=== PATIENT | male | born 1990 | race Caucasian/White ===

== ENCOUNTER 2017-03-05 02:14 | Inpatient (IN) | payer SELFPAY ==
--- NOTE | ~2017-03-05 | OR ---
PATIENT'S NAME: MAX HAMMOND [facility] AGE: 26 Y [address] ROOM: [address] [place] [address] LOCATION: [facility] ADMIT DATE: 03/05/2017 OR/Procedure Report DISCHARGE DATE: 03/06/2017 FAMILY PHYSICIAN: Physician, Unknown ATTENDING PHYSICIAN: Alberto Santamaria SURGEON: Juan Antonio Redd DO JOB SITE SUPERVISOR: DATE OF PROCEDURE: 03/05/2017 PREOPERATIVE DIAGNOSES: Cardiogenic shock with multisystem failure. SECONDARY DIAGNOSES: Acute pancreatitis, coagulopathy. PROCEDURE: 1. Insertion of right femoral arterial line. 2. Left subclavian central venous catheter. 3. Initiation of ECMO via the left femoral artery and left femoral vein. 4. Control of coagulopathy. HISTORY: Mr. Hammond is a 26-year-old, white male, who I was called to see in the emergency department where he had been transferred from an outlying facility for loss of consciousness, lack of responsiveness, and arrest on arrival to our institution. He had been initiated on pressors and was currently maxed on 3 pressors upon my arrival. I was called by Dr. Mcdonough as they had called him for possible balloon pump insertion. He felt the patient may be an ECMO candidate. The patient is a 26-year-old male who [facility] with loss of consciousness, questionable seizure activity, unwitnessed, and there was no known period of down time. Upon arrival here, he did have an arrest which did require intubations and compressions. Upon my arrival, as not noted above, he was on 3 pressors and remained hypotensive and tachycardic with pressures in the 60s and 70s and tachycardia in the 140s. Echocardiogram showed depressed ejection fraction, approximately 15% to 20% with a very enlarged right ventricle. CAT scan of the chest and abdomen did not show any evidence of pulmonary embolism. Given his overall status, I placed a right femoral arterial line for monitoring during transfer. This was done after sterilely prepping and draping the right groin and the femoral artery was accessed without difficulty and a guidewire placed without resistance. Introducer needle was removed. The catheter was placed over the guidewire and the guidewire removed. Good arterial flow was noted. The catheter was connected to the arterial monitoring system and appropriate arterial waveform was appreciated. This waveform did give us a reading of 98 at this point in time, systolic. It was secured in position with a 2-0 silk and a sterile dressing was applied. The patient was placed into deep Trendelenburg position PATIENT'S NAME: MAX HAMMOND [facility] AGE: 26 Y [address] ROOM: [address] [address] LOCATION: [facility] ADMIT DATE: 03/05/2017 OR/Procedure Report DISCHARGE DATE: 03/06/2017 FAMILY PHYSICIAN: Physician, Unknown ATTENDING PHYSICIAN: Alberto Santamaria and the infraclavicular space on the left was sterilely prepped and draped. 1% lidocaine was used to infiltrate the area. The left subclavian vein was accessed without difficulty. Guidewire was placed without difficulty. A stab incision was made at the base of the needle and the needle was withdrawn. Soft-tissue dilators were placed over the guidewire and withdrawn and then the triple-lumen catheter was placed over the guidewire and the guidewire was withdrawn. Each lumen aspirated easily with dark venous blood. It was secured and flushed with normal saline. It was secured with a 2-0 silk and a sterile dressing applied. At this point in time, I had a long conversation with the family, and they agreed for initiation of ECMO. He was transferred with myself and Dr. Asencio in attendance from the emergency department to the operative suite. General anesthetic was initiated. He was sterilely prepped and draped in usual fashion. An oblique incision was carried out over the left groin and dissection was carried out with electrocautery to the vessels. The vessels were circumferentially dissected, vessel loops applied around the artery. The patient was coagulopathic by labs and appropriate products were being ordered. Proximal and distal femoral clamps were placed on the artery. The artery was opened and 10 mm graft was secured to the femoral artery with [place] suture. The graft was then de-aired in the artery and clamped. The graft site was hemostatic. However, secondary to the coagulopathy, all needle holes were somewhat oozing and 7-0 Prolene's were used to approximate some of the needle holes. We then placed a 6-0 purse string suture in the left femoral vein and advanced the 25-Sami catheter under echocardiographic guidance into the atrium. We then placed the patient on to ECMO. We were flowing at 5 L with good pressures. His coagulopathy continued to be a tissue and this was appropriately managed. Flight crew was on standby. We prepared the patient for transfer in the operative suite, by securing the cannulas and applying sterile dressings. We then accompanied the patient myself and booking police officer and flight crew staff to the [facility], loaded the patient safely on to the helicopter and he was flown to [facility]. DO RIKKI HERNANDEZ/mayra /[id number] d: 03/14/171802 t: 03/14/172115, OPERATIVE SUMMARY
--- NOTE | ~2017-03-05 | HP ---
PATIENT'S NAME: MAX HAMMOND [facility] AGE: 26 Y [address] ROOM: [place] [address] LOCATION: [facility] ADMIT DATE: 03/05/2017 History & Physical DISCHARGE DATE: FAMILY PHYSICIAN: Physician, Unknown ATTENDING PHYSICIAN: Wesley Sims DATE OF SERVICE: CHIEF COMPLAINT: Not feeling well in general. HISTORY OF PRESENT ILLNESS: This is a 26-year-old male, with a history of alcohol use, not sure how much and how often, and the story is directly obtained from the patient's parents given that the patient is currently intubated. The story from the patient's parents is that the patient usually lives in [place] and he came here to visit his parents today. He came up here driving with his brother and his brother's girlfriend. After that, when patient arrived home, his parents noticed that the patient did not look well in general where he was complaining of not feeling well and he also vomited a few times and looks pale and does not look well in general. As the night went by, the patient ate very little dinner and he went to bed early. In the middle of the night around 1:00 a.m., the mother found the patient sitting on the ground and noted to be confused and still sweaty and also not feeling well, therefore she helped the patient to sit on the bed and then called the ambulance. The ambulance then drove the patient over here. In the emergency room, I was not present. Therefore all the events was told to me by Dr. Sims. The story is that in the emergency room, when the patient arrived here, the patient became bradycardic and went into PEA. Code blue was activated in the emergency room and the patient was down for roughly 1 minute where the patient received one round of epinephrine 1 mg and also 1 dose of atropine and the patient's heart rate was able to scrap picker. However, as the heart rate picked up, there was no blood pressure detectable. The patient was subsequently started on multiple pressors to try to regain the blood pressure. No further history can be obtained from the patient given that the patient is intubated. The patient's parents also do not know anything else. The patient's parents did tell me that the patient is a very conservative person where he keeps most of things to himself and he did not tell. The patient has a history of depression, PTSD, and also hypertension, where he takes some medicine but they are not sure which ones, and the patient is also a chronic alcohol user but the parents do not know how frequent and how many. REVIEW OF SYSTEMS: Cannot be obtained from the patient given that the patient is currently intubated. PATIENT'S NAME: MAX HAMMOND [facility] AGE: 26 Y [address] ROOM: [place], [place] [address] LOCATION: [facility] ADMIT DATE: 03/05/2017 History & Physical DISCHARGE DATE: FAMILY PHYSICIAN: Physician, Unknown ATTENDING PHYSICIAN: Wesley Sims ALLERGIES: CANNOT BE OBTAINED FROM THE PATIENT GIVEN THAT THE PATIENT IS CURRENTLY INTUBATED. FROM THE PATIENT'S PARENTS, NONE. HOME MEDICATIONS: Parents of the patient do not know. SOCIAL HISTORY: The patient is a chronic alcohol drinker according to the patient's parents but they are not sure of the frequency and quantity. The patient's parents deny any illegal drug or cigarette smoking. 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 FAMILY HISTORY: Mother has hypertension and hypothyroidism. Father has hypertension and epilepsy. He has 2 brothers, and they are all healthy. PHYSICAL EXAMINATION: VITAL SIGNS: At the time of my evaluation, currently, blood pressure is in the 72/51, heart rate is in the 135, respirations 14, on ventilator, AC mode, FiO2 100%, tidal volume 400, and rate of 14, saturating at 91%. Temperature 97.5. GENERAL APPEARANCE: The patient is not responsive, given that the patient is intubated. The patient feels cold to touch. HEENT: Pupils equally round and reactive to light. Pupil size is about 4 mm bilaterally. Anicteric sclerae. Nasal turbinates are normal bilaterally. There is some vomiting content around the mouth but they are dry. NECK: No JVD. CARDIOVASCULAR: Tachycardic. No murmur. No rubs. No gallops. Regular rhythm. RESPIRATORY: Clear to auscultation. No rales. No rhonchi. No wheezing. No crackles. ABDOMEN: Soft, cannot assess tenderness given the patient is currently unresponsive. No mass. Soft. Nondistended. Bowel sounds are present. EXTREMITIES: No edema in upper or lower extremities. The patient is cold to touch in the extremities. NEUROLOGICAL: Cannot be assessed given that the patient is currently unresponsive and intubated. SKIN: Cold to touch and a bit cyanotic in the toes and also in the fingers. LABORATORY DATA: PATIENT'S NAME: MAX HAMMOND [facility] AGE: 26 Y [address] ROOM: [place] [address] LOCATION: [facility] ADMIT DATE: 03/05/2017 History & Physical DISCHARGE DATE: FAMILY PHYSICIAN: Physician, Unknown ATTENDING PHYSICIAN: Wesley Sims Venous blood gas: 6.97, PCO2 53, bicarbonate 12.2. Lactic acid more than 15. Troponin 0.058, proBNP 129, CPK 516. White blood cells 6.9, hemoglobin 17.8, hematocrit 55.9, platelets 123. Glucose 90, BUN 14, creatinine 2.5, sodium 141, potassium 5.2, chloride 105, CO2 10, calcium 9.2. Total protein 5.1, albumin 2.6, AST 159, ALT 52, alkaline phosphatase 87, total bilirubin 1.0, magnesium 2.7, anion gap 31.2. ESR 3. INR cannot be performed given that the PT is more than 200, PTT 55. Urinalysis show negative for UTI. Urine drug screen, all negative. GFR 34. Alcohol 0.073. CK-MB 2.5. Tylenol less than 2, aspirin less than 2.8, CRP 2.4, free T4 0.6, TSH 15.9, procalcitonin 0.14, D-dimer 13.9. IMAGING STUDIES: Chest x-ray on admission, official report is pending. Based on my review, unremarkable. CT of the head without contrast has been ordered but not yet been performed given that the patient is currently unstable. EKG on admission, 2 were performed. The first one shows sinus tachycardia with nonspecific ST changes. Second EKG performed on March 05, 2017, at 2:35 a.m. shows sinus tachycardia, heart rate in the 140, AL 120 milliseconds, QTc 360 milliseconds, QRS [address] changes. ASSESSMENT AND PLAN: 1. Regarding his acute encephalopathy and acute hypoxemic respiratory failure and also shock: Etiology is not clear at the moment. Possibility could include acidosis that caused the cardiac arrest and also the patient could have had a pulmonary embolism and also could have cardiogenic origin of the shock; however, we will get an echo for stat right now. We will call on-call Cardiology right now. I am starting him on the pressor where currently, the patient is on Levophed, dopamine, epinephrine, vasopressin, dobutamine, and will be getting IV fluids, currently has gotten 4 L total. We will hold off on the fluids for now to prevent volume overload while getting all the pressors. We will need a central line and also we will get an arterial line to have a better blood pressure reading and we will treat the acidosis with sodium bicarb push, followed by drip. The patient could also have ingested substances that was not detected on the urine drug screen. We will cycle cardiac enzymes and further plan will depend on Cardiology. I have already updated the family about the plan and they are all aware and are present in the hospital at the bedside. 2. Regarding his cardiac arrest from PEA: Continue all the treatment plan as mentioned before. 3. Regarding his acute kidney injury: Continue IV fluid hydration. Currently, he has already got 4 L. Therefore we will slow down and put a PATIENT'S NAME: MAX HAMMOND [facility] AGE: 26 Y [address] ROOM: [place] [address] LOCATION: [facility] ADMIT DATE: 03/05/2017 History & Physical DISCHARGE DATE: FAMILY PHYSICIAN: Physician, Unknown ATTENDING PHYSICIAN: Wesley Sims pause while he is getting all the vasopressors. 4. Regarding his acidemia: This could be the cause of the cardiac arrest. Currently, we will continue with sodium bicarbonate drip. 5. Troponin elevation: This could be from pulmonary embolism. This could also be from the coronary origin of the cardiac arrest. Get an echo right now, cycle enzymes, and I will consult Cardiology right away. Heparin drip, we will defer to Cardiology where on-call bookkeeping machine mechanic is on the way here. If suspect pulmonary embolism is causing cardiac arrest and hypotension, then the patient will require a tPA. Again this is deferred to Cardiology, which Dr. Mcdonough is on the way here. In addition, bedside echo, based on the mineral surveying technician said his EF is around 110%. 6. Regarding his transaminitis: It could be from the chronic alcohol use. 7. Regarding his hypothyroidism: We will treat this once he is more stable. 8. Regarding his D-dimer elevation: Could be from the setting of the shock or could be from possible pulmonary embolism, Dr. Mcdonough is on the way here. 9. He is a full code. Time spent in care on the day of admission, 60 minutes; so far spent were for including counseling, physical examination, also on interview. The counseling includes going over the plan of care with the patient's family members at the bedside and also by placing a phone call to the on-call Cardiology, Dr. Mcdonough who is on the way here. This time also includes calling the on- call mineral surveying technician to come by to do the echo stat. Further plan will depend on clinical course. MD RENAE CANO/mayra /[id number] D: T: [id number] HISTORY & PHYSICAL
--- NOTE | ~2017-03-05 | CON ---
PATIENT'S NAME: MAX HAMMOND [facility] AGE: 26 Y [address] ROOM: [address] [address] LOCATION: [facility] ADMIT DATE: 03/05/2017 Consultation DISCHARGE DATE: 03/06/2017 FAMILY PHYSICIAN: Physician, Unknown ATTENDING PHYSICIAN: Juan Antonio Redd DATE OF CONSULTATION: 03/05/2017 REFERRING PHYSICIAN: Alberto Santamaria MD I was called to the operating room to do a consultation because of concern for abdominal compartment syndrome. The patient reportedly had a bladder pressure of 25. The patient is a 26-year-old male who presented with cardiopulmonary arrest and the heart team had placed him on ECMO in preparation for transfer. A transfer team was there waiting for transfer, but they wanted me to evaluate the patient's compartment syndrome prior to transfer. On evaluation, the patient's abdomen was not tight, but it was firm. The patient was also coagulopathic as well from being in cardiopulmonary arrest. The patient was noted to have no compromise of his cardiopulmonary situation. His evaluation was good with no evidence of any compromise of tidal volume, and his pressures were good as well, so there was no evidence that this elevated abdominal pressure was impacting his status at all, so because the patient's abdominal compartment syndrome appeared to have no clinical impact and because the patient was also coagulopathic and also because the patient's transport team was there ready to transport to a higher level of care, I did not feel that the optimal care would be to open his abdomen at this time. I think it would certainly delay his transport and delay his care, especially because of the potential of getting into significant bleeding problems. The other staff in the room agreed with the decision as well. The patient was continued to be in preparation for transport to higher level of care. KASANDRA MORRISON MD CC/modl /[id number] d: 03/05/17 1629 t: 03/07/17 2302, CONSULTATION REPORT
--- NOTE | ~2017-03-05 | ER ---
PATIENT'S NAME: MAX HAMMOND [facility] AGE: 26 Y [address] ROOM: [address] [place], [place] [address] LOCATION: [facility] ADMIT DATE: 03/05/2017 ER/Outpatient Report DISCHARGE DATE: 03/06/2017 FAMILY PHYSICIAN: Physician, Unknown ATTENDING PHYSICIAN: Juan Antonio Redd Admission date and time documented in medical record. I saw the patient at 0215 hours. HISTORY OF PRESENT ILLNESS: The patient is a 26-year-old male, who is brought to the emergency room by paramedics who assisted [place] [id number] EMS crew and [place] [id number] EMS crew. The patient was brought to the emergency room by ambulance. On arrival, the patient was unresponsive. He was intubated and being bagged with Ambu bag. We placed him on the ventilator on arrival. He was tachycardic with a pulse rate about 140, regular. We were assisting ventilations at about 14. Temperature was 94.7, tympanic. We did place an IO line and a peripheral IV. We started immediately on hydration fluids. We did place a Lin catheter. His core temperature was around 95.7 I believe. Shortly after arrival, the patient became bradycardic. We treated with one amp of IV atropine, 1 amp of epinephrine. His pulse responded, however, we were unable to get a blood pressure. We did start him on pressors. Continued IV fluids. The patient had cyanotic nail beds, poor capillary refill, and was clammy. His extremities were cool. He had a fairly strong femoral pulse most of the time however. We could not however not get a very good blood pressure. Readings were systolic 40 to 60 most of the time. Unknown how long he had been hypotensive. The patient's history was that he is from [place], lives alone, came out to visit his parents. He apparently had some type of witnessed seizure activity around 1800 hours. He was last seen being well around 2200. He was found unresponsive around 0100 and then brought to the emergency room by paramedics/EMS crew via ambulance. En route, the patient did have some witnessed seizure activity. The patient was intubated. The patient arrived here at 0214 hours. Again, shortly after the patient did become bradycardic. The patient was on a ventilator. We did do a brief CPR and gave him 1 amp of atropine, 1 amp of epinephrine with confucianism of heart rhythm, good heart rate, although it is tachy and a good femoral pulse to palpation. Dr. Santamaria, hospitalist did come down when we did call the code. We are unable to get blood for peripheral stick for lab and I did do a right femoral stick for laboratory studies. Dr. Santamaria took over control of the care of this patient and I assisted. HOME MEDICATIONS: Unknown. ALLERGIES: NONE ACCORDING TO THE PARENTS. PATIENT'S NAME: MAX HAMMOND [facility] AGE: 26 Y [address] ROOM: [address] [place] [id number] LOCATION: [facility] ADMIT DATE: 03/05/2017 ER/Outpatient Report DISCHARGE DATE: 03/06/2017 FAMILY PHYSICIAN: Physician, Unknown ATTENDING PHYSICIAN: Juan Antonio Redd SOCIAL HISTORY: The patient does drink alcohol. Nonsmoker. PAST MEDICAL HISTORY: Unknown because of the patient's inability to give us any history. PAST SURGICAL HISTORY: Unknown. REVIEW OF SYSTEMS: Unable to be obtained from the patient since he is intubated. PHYSICAL EXAMINATION: VITAL SIGNS: Temperature was 94.7 tympanic, pulse was 140 regular, respirations 14, and unable to get a blood pressure. HEENT: Head: Normocephalic. No abrasion, contusion, laceration, swellings. Eyes: Pupils were round, minimally reactive. He did not have any evidence of blown pupils on either eye. Ears: Clear TMs bilaterally. Nose: No epistaxis. Clear. Throat: Not examined. LUNGS: Good air flow in all lung nj. The patient is intubated on a ventilator. HEART: Tachy. Regular. Chest wall no deformity. ABDOMEN: Flat, soft, nondistended. NG tube was placed. GENITOURINARY: Genitalia were intact. Lin was placed. Minimal urine output. Urine was sent that to lab for urinalysis, urine drug screen, culture. EXTREMITIES: The patient had cold extremities with cyanotic nail beds and was clammy. NEUROLOGIC: The patient is unresponsive, intubated. Pupils minimally reactive bilaterally. SKIN: Cool, clammy. Nail bed cyanotic. Again, the patient was given fluids, put on multiple pressors. Dr. Santamaria did consult Dr. Redd, Thoracic surgeon; Dr. Asencio, tool and cutter grinder; Dr. Mcdonough, Cardiology. The patient was eventually taken for ECMO and subsequently transferred to [facility]. IMPRESSION: 1. Cardiogenic shock. 2. Respiratory failure. 3. Acidosis. 4. Possible seizure activity with no seizure history. PLAN: The patient's care was transferred to Dr. Santamaria and consultants. The patient PATIENT'S NAME: MAX HAMMOND [facility] AGE: 26 Y [address] ROOM: [address] [address] LOCATION: [facility] ADMIT DATE: 03/05/2017 ER/Outpatient Report DISCHARGE DATE: 03/06/2017 FAMILY PHYSICIAN: Physician, Unknown ATTENDING PHYSICIAN: Juan Antonio Redd did eventually go to surgery for ECMO and subsequently transferred. Cumulative critical care time for me was [address] Santamaria's dictation, Dr. Redd's dictation. Dr. Asencio's dictation, Dr. Mcdonough's dictation. MD REDD RIVERA/modl /[id number] d: 03/07/17 2354 t: 03/08/17 181, OUTPATIENT REPORT
--- NOTE | ~2017-03-05 | HP ---
PATIENT'S NAME: MAX HAMMOND [facility] AGE: 26 Y [address] ROOM: [id number] [place] [id number] LOCATION: [facility] ADMIT DATE: 03/05/2017 History & Physical DISCHARGE DATE: FAMILY PHYSICIAN: PHYSICIAN, UNKNOWN ATTENDING PHYSICIAN: Juan Antonio Redd DATE OF SERVICE: ADDENDUM: Dr. Asencio, Dr. Redd, and Dr. Mcdonough all showed up and have already seen and examined the patient and updated the family members. Transthoracic echo at the bedside was performed and based on the verbal report given to me by the registered representative, Dr. Mcdonough, there is a right ventricular heart strain with an EF of left ventricle about 30%. There will be a concern about the pulmonary embolism given the D-dimer was also elevated and the patient was also becoming hypoxic. His blood pressure was dropping again despite on Levophed drip, but basal pressing drip, Peewee-Synephrine drip, dopamine drip, epinephrine drip, and also on dobutamine drip. His oxygen was also become hypoxic despite on 100% FiO2, 5 of PEEP, and breathing at 14 times per minute, as set by the ventilator. Blood work showed that he is acidemic. Therefore, 3 amps of bicarb were given and 3 amps were given more and followed by drip at 150 mL/h of the sodium bicarbonate drip. Due to the concern for massive pulmonary embolism, the patient underwent CT angiogram of the chest after getting 4 L of normal saline for hydration for the kidneys for ADELFO. Preliminary report of the CT chest with contrast showed that there was no evidence of pulmonary embolism. This is atelectasis in the right lower lung and small collection of pleural effusion on the left lower lung. No obvious infiltrate to suggest pneumonia except some atelectasis on the right lower lung. Given that the patient's condition is deteriorating despite the maximum doses of multiple vasopressors and also maximal support by the ventilator, the patient is still hypoxic and also still hypotensive. Family meeting was held between Dr. Redd and Sarahy with the family members and Dr. Redd's decision with the patient's family members will be go ahead and proceed with ECMO. The benefit and risks were explained by Dr. Redd with the family member and family member voiced agreement and also no question and agreed to proceed with ECMO. The plan right now will be taking the patient to the operating room to perform ECMO and then the patient will be transferred by helicopter to the [facility] in [place]. The case was discussed over the phone by Dr. Asencio, who is the accepting physician at [facility]. His name is Dr. Jonny Cardenas, who is also an ICU anesthesiologist, critical care physician. We spent a large amount of time with the family member multiple times, gave updates, and answered all their questions and they all agree with the plan. We are changing shift right now. Therefore, I have already spoken to Dr. Martell Polo, and talking about the case in detail and things to follow, which include checking on the patient after ECMO to make sure he is PATIENT'S NAME: MAX HAMMOND [facility] AGE: 26 Y [address] ROOM: [place] [address] LOCATION: [facility] ADMIT DATE: 03/05/2017 History & Physical DISCHARGE DATE: FAMILY PHYSICIAN: PHYSICIAN, UNKNOWN ATTENDING PHYSICIAN: Juan Antonio Redd hemodynamically stable in terms of blood pressure and oxygen saturation and then contact the flight crew who is already on statin-by to fly the patient urgently out to [facility]. Further plan will depend on clinical course. CT of the brain was also performed without contrast and there was no acute intracranial abnormality based on the preliminary review. Further plan will depend on clinical course. RITIKA MCCONNELL MD CC/modl /[id number] P D: T: HISTORY & PHYSICAL
--- NOTE | ~2017-03-05 | DS ---
PATIENT'S NAME: MAX HAMMOND [facility] AGE: 26 Y [address] ROOM: [place] [address] LOCATION: [facility] ADMIT DATE: 03/05/2017 Discharge Summary DISCHARGE DATE: 03/05/2017 FAMILY PHYSICIAN: Physician, Unknown ATTENDING PHYSICIAN: Juan Antonio Redd DISPOSITION: Transfer to [facility] on March 05, 2017. PRIMARY DISCHARGE DIAGNOSES: 1. Cardiac arrest secondary to pulseless electrical activity. 2. Acute hypoxemic respiratory failure. 3. Multiorgan failure. 4. Shock. 5. Acute kidney injury. 6. acute encephalopathy. 7. Acidemia. 8. Pancreatitis. 9. Transaminitis. SECONDARY DISCHARGE DIAGNOSES: 1. Chronic alcohol use. 2. Hypertension. 3. Depression. 4. Posttraumatic stress disorder. DISCHARGE MEDICATIONS: 1. Levophed drip. 2. Epinephrine drip. 3. Vasopressin drip. 4. Dopamine drip. 5. Dobutamine drip. 6. Peewee-Synephrine drip. 7. sodium bicarbonate drip. CONSULTANTS INVOLVING CARE: 1. Critical care anesthesiologist, Dr. Asencio. 2. Cardiothoracic surgeon, Dr. Redd. 3. Substation Operator Chief, Dr. Mcdonough. 4. Hospitalist. INVESTIGATIONS DURING THE HOSPITALIZATION: 1. CT of the head without contrast on admission showed normal intracranial structures. Severe sinusitis involving the ethmoid and the left maxillary with lesser changes in the right maxillary and sphenoid where PATIENT'S NAME: MAX HAMMOND [facility] AGE: 26 Y [address] ROOM: [place] [address] LOCATION: [facility] ADMIT DATE: 03/05/2017 Discharge Summary DISCHARGE DATE: 03/05/2017 FAMILY PHYSICIAN: Physician, Unknown ATTENDING PHYSICIAN: Juan Antonio Redd there is some fluid. 2. CT pulmonary angiogram on admission showed acute interstitial edematous pancreatitis, especially severe at the head of the pancreas. No biliary obstruction, however. Peripancreatic fluid especially at the head of the pancreas is extended into the retroperitoneum on the right. Bowel ileus pattern. No pulmonary embolism. Bibasilar atelectasis and prominent pleural effusions. 3. Chest x-ray on admission showed endotracheal tube tip is at about the mid tracheal level appears satisfactory. 4. Chest x-ray on admission, second one showed heart mediastinum and pulmonary vasculature remain normal. Endotracheal tube in position. NG tube has been placed and is also in good position. LABORATORY DATA: Venous blood gas on admission showed pH of less than 6.8, pCO2 of 57. Lactic acid more than 15. Troponin 0.058, proBNP 129, CPK of 516. White blood cell 6.9, hemoglobin 17.8, hematocrit 55.9, platelet 123, glucose 90, BUN 14, creatinine 2.5, sodium 141, potassium 5.2, chloride 105, CO2 of 10, calcium 9.2. Total protein 5.1, albumin 2.6, AST 159, ALT 52, alkaline phosphatase 87, total bilirubin 1, magnesium 2.7, anion gap 31.2. ESR 3. INR not performed, PT more than 200, PTT 55. Fibrinogen 73. Urinalysis negative for UTI. Urine drug screen, all negative. GFR 34. Alcohol level 0.073. Amylase 235, lipase 7603. CK-MB 2.5. Tylenol less than 2, aspirin level less than 2.8. CRP 2.44. Free T4 0.6, TSH 15.9. Procalcitonin 0.14. D-dimer 13.9. FOLLOWUP PLAN: The patient will be transferred to [facility] and the accepting physician over there is Critical care anesthesiologist in intensive Care Unit Dr. Javon Cardenas. The case was discussed between our ICU critical care anesthesiologist, Dr. Asencio, and Dr. Cardenas over there who accepted the patient. The patient is status post ECMO performed by Dr. Redd and Dr. Asencio. The patient will be transferred directly from the operating room to [facility] directed to the ICU. ADMISSION HISTORY AND THE HOSPITALIZATION COURSE: For the complete history and physical, refer to history and physical, including the addendum to the history and physical dictated on the day of admission. In summary, this is a 26-year-old male who, was complaining of nausea, vomiting, and not feeling well in general and also pale and was found confused by his parents in the middle of night, and he was sent over here for further care. Upon arrival, the patient went into cardiac arrest with PEA, was down for roughly 1 to 2 minutes, receiving one round of epinephrine and also CPR. Upon recovery, pulse was recovered after atropine and epinephrine, however, there was no blood pressure detectable. The patient required several PATIENT'S NAME: MAX HAMMOND [facility] AGE: 26 Y [address] ROOM: [id number] [place], [place] [address] LOCATION: [facility] ADMIT DATE: 03/05/2017 Discharge Summary DISCHARGE DATE: 03/05/2017 FAMILY PHYSICIAN: Physician, Unknown ATTENDING PHYSICIAN: Juan Antonio Redd vasopressors and eventually became hypoxic and also still hypotensive. The patient was found to be acidemic where it was corrected with sodium bicarbonate bolus followed by drip. There was a concern about pulmonary embolism based on the echo report. Echo was performed stat, showed RV strain with EF of around 30% in the left ventricle. ADELFO was treated with 5 L of normal saline. The patient underwent a CT per PE protocol, which did not show any PE but did show severe pancreatitis changes. EKG was performed, only showed sinus tachycardia. Due to the concern of the patient's hemodynamic instability including persistent hypotension and hypoxia secondary to hypoperfusion, the patient underwent ECMO and later was transferred directly to [facility] for further care. The plan was discussed in detail in family meeting with the family members and all agree with the current plan. At the time of the transfer, the patient's family was very grateful for the care provided, and the patient will be transferred by helicopter directly from the operating room after ECMO to [facility]. MD RENAE CANO/mayra /[id number] d: t: 03/06/17 0049, DISCHARGE SUMMARY
[2017-03-05 02:37] LABS: BILIRUBIN URINE NEGATIVE (NEGATIVE); BLOOD URINE NEGATIVE /UL (NEGATIVE); COLOR URINE YELLOW (YELLOW); GLUCOSE URINE NEGATIVE (NEGATIVE); KETONE URINE 15 mg/dL (NEGATIVE); LEUKOCYTES URINE NEGATIVE /UL (NEGATIVE); NITRITE URINE NEGATIVE (NEGATIVE); PROTEIN URINE 30 mg/dL (NEGATIVE); TURBIDITY URINE CLEAR (CLEAR); UROBILINOGEN URINE NORMAL (NORMAL)
[2017-03-05 02:53] LABS: AMORPHOUS URINE 1+ (NEGATIVE); BACTERIA URINE NEGATIVE (NEGATIVE); EPITHELIAL URINE 0-2 #/HPF (NEGATIVE); HYALINE CAST URINE 0-2 #/LPF (NEGATIVE); RBC URINE 0-2 #/HPF (NEGATIVE); WBC URINE 0-2 #/HPF (NEGATIVE)
[2017-03-05 02:54] LABS: BARBITURATE NEGATIVE (NEGATIVE); COCAINE NEGATIVE (NEGATIVE); OPIATES NEGATIVE (NEGATIVE)
[2017-03-05 02:58] LABS: AMPHETAMINE NEGATIVE (NEGATIVE)
[2017-03-05 02:59] LABS: HEMATOCRIT 55.9 % (37.0-53.0); HEMOGLOBIN 17.8 g/dL (12.0-17.0); MCH 33.1 pg (27.0-34.0); MCHC 31.8 gm/dL (32.0-36.5); MCV 104.1 fl (83.0-98.0); MPV 10.4 fl (9.4-12.4); PLATELET COUNT 123 K/uL (150-450); RBC 5.37 M/uL (4.00-6.00); RDW-CV 12.5 % (11.9-14.6); WBC 6.9 K/uL (4.0-11.0)
[2017-03-05 03:21] LABS: ALBUMIN 2.6 gm/dL (3.5-5.0); ALK PHOS 87 IU/L (33-138); ALT 52 IU/L (12-78); BLOOD UREA NITROGEN 14 mg/dL (6-24); CALCIUM 9.2 mg/dL (8.5-10.5); CHLORIDE 105 mMol/L (96-110); CREATININE 2.5 mg/dL (0.6-1.3); SODIUM 141 mMol/L (135-145); TOTAL PROTEIN 5.1 g/dL (6.0-8.4)
[2017-03-05 03:24] LABS: ANION GAP 31.2 (10.0-19.0); AST 159 IU/L (10-40); CO2 10 mMol/L (22-32); CPK 516 IU/L (35-332); MAGNESIUM 2.7 mg/dL (1.8-2.6); POTASSIUM 5.2 mMol/L (3.7-5.1)
[2017-03-05 04:08] LABS: ABSOLUTE NEUTROPHIL CT (ANC) 4.1 K/uL (1.4-9.0); BANDED NEUTROPHIL # 2.5 K/uL (0.0-0.1); BANDED NEUTROPHILS % 36 %; LYMPHOCYTE # 1.9 K/uL (0.8-4.0); LYMPHOCYTE % 28 %; MONOCYTE # 0.5 K/uL (0.0-1.0); SEGMENTED NEUTROPHIL # 1.6 K/uL (1.4-9.0); SEGMENTED NEUTROPHIL % 23 %
[2017-03-05 04:12] LABS: PTT 55 SECONDS (25-32)
[2017-03-05 04:14] LABS: PROTIME > 200.0 SECONDS (9.8-11.4)
[2017-03-05 04:22] LABS: PCO2 57 mmHg (35-45); PO2 132 mmHg (80-90)
[2017-03-05 04:32] LABS: BICARBONATE 12.2 mmol/L (18.0-23.0); PCO2 53 mmHg (35-45)
[2017-03-05 04:33] LABS: PO2 83 mmHg (80-90)
[2017-03-05 06:19] LABS: PCO2 49 mmHg (35-45)
[2017-03-05 06:24] LABS: BICARBONATE 15.9 mmol/L (18.0-23.0); PO2 53 mmHg (80-90)
[2017-03-05 07:21] LABS: PTT 88 SECONDS (25-32)
[2017-03-05 07:24] LABS: PROTIME > 200.0 SECONDS (9.8-11.4)
[2017-03-05 09:11] LABS: MCV 100.3 fl (83.0-98.0); MPV 9.6 fl (9.4-12.4); RDW-CV 13.5 % (11.9-14.6)
[2017-03-05 09:15] LABS: HEMATOCRIT 29.9 % (37.0-53.0); MCH 33.6 pg (27.0-34.0); MCHC 33.4 gm/dL (32.0-36.5); PLATELET COUNT 78 K/uL (150-450); RBC 2.98 M/uL (4.00-6.00); WBC 1.8 K/uL (4.0-11.0)
[2017-03-05 09:32] LABS: ALBUMIN 2.7 gm/dL (3.5-5.0); CALCIUM 10.1 mg/dL (8.5-10.5); CREATININE 2.2 mg/dL (0.6-1.3)
[2017-03-05 09:33] LABS: ANION GAP 29.4 (10.0-19.0); POTASSIUM 3.4 mMol/L (3.7-5.1); TOTAL PROTEIN 4.7 g/dL (6.0-8.4)
[2017-03-05 09:42] LABS: INR - (THERAPEUTIC) 1.39 (0.92-1.07)
[2017-03-05 09:48] LABS: PROTIME 14.6 SECONDS (9.8-11.4); PTT 166 SECONDS (25-32)
[2017-03-05 09:58] LABS: ABSOLUTE NEUTROPHIL CT (ANC) 1.5 K/uL (1.4-9.0); BANDED NEUTROPHIL # 0.8 K/uL (0.0-0.1); BANDED NEUTROPHILS % 45 %; LYMPHOCYTE # 0.3 K/uL (0.8-4.0); LYMPHOCYTE % 15 %; SEGMENTED NEUTROPHIL # 0.7 K/uL (1.4-9.0); SEGMENTED NEUTROPHIL % 40 %
[2017-03-05 10:14] LABS: ALPHA ANGLE 77 degrees; CLOT FORMATION TIME 76 seconds; CLOTTING TIME 226 seconds; MAXIMUM CLOT FIRMNESS 62 mm; MAXIMUM LYSIS 0 %
[2017-03-05 10:15] LABS: ALPHA ANGLE 73 degrees (70-81); CLOTTING TIME 60 seconds (43-82); MAXIMUM CLOT FIRMNESS 61 mm (51-72)
[2017-03-05 10:18] LABS: MCH 31.8 pg (27.0-34.0); MCHC 32.9 gm/dL (32.0-36.5); MCV 96.5 fl (83.0-98.0); MPV 9.5 fl (9.4-12.4); RBC 3.18 M/uL (4.00-6.00); RDW-CV 15.4 % (11.9-14.6)
[2017-03-05 10:19] LABS: HEMATOCRIT 30.7 % (37.0-53.0); HEMOGLOBIN 10.1 g/dL (12.0-17.0); WBC 1.4 K/uL (4.0-11.0)
[2017-03-05 10:28] LABS: INR - (THERAPEUTIC) 1.38 (0.92-1.07); PROTIME 14.5 SECONDS (9.8-11.4)
[2017-03-05 13:22] LABS: BICARBONATE 19.4 mmol/L (18.0-23.0); PCO2 62 mmHg (35-45); PO2 70 mmHg (80-90); POTASSIUM 3.5 mEq/L (3.7-5.1); SODIUM 142 mEq/L (135-145)
[2017-03-05 13:23] LABS: BICARBONATE 18.3 mmol/L (18.0-23.0); PCO2 53 mmHg (35-45); PO2 356 mmHg (80-90)
[2017-03-05 13:24] LABS: POTASSIUM 3.2 mEq/L (3.7-5.1); SODIUM 141 mEq/L (135-145)
[2017-03-05 13:24] LABS: BICARBONATE 19.5 mmol/L (18.0-23.0); PCO2 49 mmHg (35-45); PO2 384 mmHg (80-90)
[2017-03-05 13:25] LABS: POTASSIUM 3.3 mEq/L (3.7-5.1); SODIUM 141 mEq/L (135-145)
[2017-03-05 13:47] LABS: BICARBONATE 20.8 mmol/L (18.0-23.0); PCO2 53 mmHg (35-45); PO2 411 mmHg (80-90); SODIUM 141 mEq/L (135-145)
[2017-03-05 13:48] LABS: POTASSIUM 3.4 mEq/L (3.7-5.1)
== END 2017-03-06 09:33 | disposition hospice, home (50) | DRG 291 ==
LOC: GMED 02:14 → GNTU 06:33 → GICU 06:33 → GNTU 13:09
PROVIDERS: Anesthesiology Critical Care Medicine; Emergency Medicine; ADMIT Thoracic Surgery (Cardiothoracic Vascular Surgery)
PROC: 0DH673Z Insertion of Infusion Device into Stomach, Via Natural or Artificial Opening (ICD-10-PCS; principal; 2017-03-05)
PROC: 5A1945Z Respiratory Ventilation, 24-96 Consecutive Hours (ICD-10-PCS; principal; 2017-03-05)
PROC: 3E043XZ Introduction of Vasopressor into Central Vein, Percutaneous Approach (ICD-10-PCS; principal; 2017-03-05)
PROC: 30243N1 Transfusion of Nonautologous Red Blood Cells into Central Vein, Percutaneous Approach (ICD-10-PCS; principal; 2017-03-05)
DX: R57.0 Cardiogenic shock (principal); J96.01 Acute respiratory failure with hypoxia; G93.40 Encephalopathy, unspecified; K85.90 Acute pancreatitis without necrosis or infection, unspecified; N17.9 Acute kidney failure, unspecified; E87.2 Acidosis; I95.9 Hypotension, unspecified; T79.A0XA Compartment syndrome, unspecified, initial encounter; Z72.89 Other problems related to lifestyle; F10.20 Alcohol dependence, uncomplicated; E03.9 Hypothyroidism, unspecified; E87.70 Fluid overload, unspecified; R74.0 Nonspecific elevation of levels of transaminase and lactic acid dehydrogenase [LDH]; F32.9 Major depressive disorder, single episode, unspecified; F43.10 Post-traumatic stress disorder, unspecified
CPT/HCPCS: C1751; G0480; J0171; J0461; J1250; J1265; J1720; J2020; J2185; J2260; J2310; J2370; J7030; J7040; J7050; J7060; P9012; P9016; P9017; P9035; P9045; Q9967; Q9968

== ENCOUNTER → 2017-03-05 | Outpatient (CLI) | payer SELFPAY | END | disposition disaster alternative care site (69) | LOC: GAIR 11:54 | DX: R57.0 Cardiogenic shock (principal); R11.10 Vomiting, unspecified; I10 Essential (primary) hypertension; Z72.89 Other problems related to lifestyle; R69 Illness, unspecified; R41.82 Altered mental status, unspecified; Z86.59 Personal history of other mental and behavioral disorders | CPT/HCPCS: A0422; A0431; A0436; J2250; J3010; J7030 ==

== ENCOUNTER → 2017-03-05 | Outpatient (CLI) | payer SELFPAY | END | disposition disaster alternative care site (69) | LOC: GAMB 01:47 | DX: R40.20 Unspecified coma (principal); I95.9 Hypotension, unspecified; R56.9 Unspecified convulsions; R11.10 Vomiting, unspecified; I49.8 Other specified cardiac arrhythmias; R32 Unspecified urinary incontinence; R23.0 Cyanosis; R41.82 Altered mental status, unspecified ==